=== PATIENT | female | born 1985 | race Hispanic/Latino ===

== ENCOUNTER 2018-08-26 12:16 | Emergency (ER) | payer MEDICAID ==
[2018-08-26 12:24] VITALS: BP 132/80
[2018-08-26] MEDS ORDERED: IMODIUM PO ONE (12:36)
[2018-08-26] MEDS ORDERED: ZOFRAN ODT PO ONE (12:36)
[2018-08-26] MEDS ORDERED: IMODIUM ONE (12:40)
[2018-08-26] MEDS ORDERED: ZOFRAN ODT ONE (12:40)
--- NOTE | 2018-08-26 12:40 | Emergency Department Report ---
ED N/V/D HPI - General Chief complaint: Nausea/Vomiting/Diarrhea Stated complaint: MIGRAIN/STOMACH VIRUS Time Seen by Provider: 08/26/18 12:32 Source: patient Mode of arrival: Ambulatory Limitations: No Limitations - History of Present Illness Initial comments: 32-year-old female presents to ED with nausea, vomiting, diarrhea since yesterday. She reports sick contacts at home. Denies abdominal pain, fevers. Also reports migraine headache 2 weeks. Patient has history of migraines. Has been taking [id number] medications. MD complaint: nausea, vomiting, diarrhea -: days(s) (1) Description of Vomiting: food contents Description of Diarrhea: water Associated Abdominal Pain: No Severity: mild Improves with: none Worsens with: eating Associated Symptoms: headaches. denies: fever/chills - Related Data Previous Rx's Medication Instructions Recorded Last Taken Type Butalb/Acetamin/Caff 50-325-40 1 tab PO Q6HR PRN #10 tab 08/26/18 Unknown Rx [Fioricet] Ondansetron [Zofran Odt] 4 mg PO Q8HR PRN #20 tab.rapdis 08/26/18 Unknown Rx Promethazine [Phenergan TAB] 25 mg PO Q6HR PRN #20 tab 08/26/18 Unknown Rx Allergies Allergy/AdvReac Type Severity Reaction Status Date / Time No Known Allergies Allergy Unverified 08/26/18 12:24 ED Review of Systems ROS: Stated complaint: MIGRAIN/STOMACH VIRUS Other details as noted in HPI Comment: All other systems reviewed and negative Constitutional: denies: chills, fever Gastrointestinal: nausea, vomiting, diarrhea. denies: abdominal pain ED Past Medical Hx - Past Medical History Hx Headaches / Migraines: Yes Additional medical history: elevated cholesterol - Surgical History Additional Surgical History: tubiligation, d/c, partial hysterectomy,right wrist - Social History Smoking Status: Never Smoker Substance Use Type: Alcohol - Medications Home Medications: Home Medications Medication Instructions Recorded Confirmed Last Taken Type Butalb/Acetamin/Caff 50-325-40 1 tab PO Q6HR PRN #10 tab 08/26/18 Unknown Rx [Fioricet] Ondansetron [Zofran Odt] 4 mg PO Q8HR PRN #20 tab.rapdis 08/26/18 Unknown Rx Promethazine [Phenergan TAB] 25 mg PO Q6HR PRN #20 tab 08/26/18 Unknown Rx ED Physical Exam - General Limitations: No Limitations General appearance: alert, in no apparent distress - Head Head exam: Present: atraumatic, normocephalic - Eye Eye exam: Present: normal appearance - ENT ENT exam: Present: mucous membranes moist - Neck Neck exam: Present: normal inspection - Respiratory Respiratory exam: Present: normal lung sounds bilaterally. Absent: respiratory distress - Cardiovascular Cardiovascular Exam: Present: regular rate, normal rhythm - GI/Abdominal GI/Abdominal exam: Present: soft. Absent: distended, tenderness - Extremities Exam Extremities exam: Present: normal inspection - Neurological Exam Neurological exam: Present: alert, oriented X3, CN II-XII intact. Absent: motor sensory deficit - Psychiatric Psychiatric exam: Present: normal affect, normal mood - Skin Skin exam: Present: warm, dry, intact, normal color ED Course Vital Signs 08/26/18 12:19 Temperature 97.7 F Pulse Rate 75 Respiratory 18 Rate Blood Pressure 132/80 O2 Sat by Pulse 100 Oximetry Critical care attestation.: If time is entered above; I have spent that time in minutes in the direct care of this critically ill patient, excluding procedure time. ED Disposition Clinical Impression: Gastroenteritis, Migraine headache Disposition: TO HOME OR SELFCARE Is pt being admited?: No Condition: Stable Instructions: Gastroenteritis (ED) Prescriptions: Butalb/Acetamin/Caff 50-325-40 [Fioricet] 1 tab PO Q6HR PRN #10 tab PRN Reason: Headache Ondansetron [Zofran Odt] 4 mg PO Q8HR PRN #20 tab.rapdis PRN Reason: Vomiting Promethazine [Phenergan TAB] 25 mg PO Q6HR PRN #20 tab PRN Reason: Nausea Referrals: [facility] [Provider Group] - 3-5 Days RADHA ELLIS MD [Referring] - 3-5 Days DANNI VICTORIA MD [Staff Physician] - 3-5 Days Forms: Work/School Release Form(ED) Time of Disposition: 12:40
[2018-08-26 12:51] LABS: Bilirubin,Urine NEG (Negative); Blood,Urine SM (Negative); Color,Urine Yellow (Yellow); Mucus,Urine FEW /HPF; Protein,Urine <15 mg/dL mg/dL (Negative); Urobilinogen,Urine < 2.0 mg/dL (<2.0); WBC,Urine < 1.0 /HPF (0.0-6.0)
== END 2018-08-26 12:53 | disposition home or self-care (01) ==
LOC: ED 12:16
DX: K52.9 Noninfective gastroenteritis and colitis, unspecified (principal); G43.909 Migraine, unspecified, not intractable, without status migrainosus; E78.00 Pure hypercholesterolemia, unspecified; Z98.51 Tubal ligation status; Z90.710 Acquired absence of both cervix and uterus
CPT/HCPCS: 81001; 99283; Q0162

== ENCOUNTER 2019-01-10 14:17 | Emergency (ER) | payer MEDICAID ==
[2019-01-10 14:31] VITALS: BP 133/79
[2019-01-10] MEDS ORDERED: BENADRYL IV ONE (14:51)
[2019-01-10] MEDS ORDERED: TORADOL IV ONE (14:51)
[2019-01-10] MEDS ORDERED: REGLAN IV ONE (14:51)
[2019-01-10] MEDS ORDERED: NACL 0.9% 1000 ML 1,000 ML IV ONE (14:51)
--- NOTE | 2019-01-10 14:54 | Emergency Department Report ---
ED Headache HPI - General Chief Complaint: Headache Stated Complaint: MIGRANE 3WKS/N/V Time Seen by Provider: 01/10/19 14:31 - History of Present Illness Initial Comments: This is a 33-year-old female nontoxic, well nourished in appearance, no acute signs of distress presents to the ED with c/o of acute on chronic headache. Patient stated that she has chronic migraine headaches and currently symptoms of headache today is the same as usual with no changes. Patient describes headache as diffuse with level of 3 out of 10. Patient denies thunderclap headache. Patient denies any radiation of pain. Patient denies any head trauma. Patient denies any visual changes. Patient denies worse headache. Patient stated that darkness makes headache better and bright lights make the headache worse. Patient also agrees to some nausea and vomiting. Patient denies any numbness, tingling, fever, chills, chest pain, shortness of breath, stiff neck. Patient denies facial drooping or one sided weakness. Patient denies any radiation of pain. Patient denies any allergies. Past medical history includes migraine headaches. Timing/Duration: episodic Quality: mild Head Injury Location: other (diffuse) Recent Head Trauma: occasional headaches Associated Symptoms: denies symptoms, nausea/vomiting, other (light sensitivity). denies: confusion, fatigue, facial pain, fever/chills, flushing, loss of consciousness, nasal congestion, nasal drainage, numbness in legs/feet, rash, seizures, sinus infection, stiff neck, vision changes, weakness Allergies/Adverse Reactions: Allergies No Known Allergies Allergy (Verified 01/10/19 14:18) Home Medications: Ambulatory Orders Butalb/Acetamin/Caff 50-325-40 [Fioricet] 1 tab PO Q6HR PRN #10 tab 08/26/18 Ondansetron [Zofran Odt] 4 mg PO Q8HR PRN #20 tab.rapdis 08/26/18 Promethazine [Phenergan TAB] 25 mg PO Q6HR PRN #20 tab 08/26/18 SUMAtriptan SUCCINATE [Imitrex] 25 mg PO QDAY #20 tablet 09/02/18 Butalb/Acetaminophen/Caffeine [Fioricet 50-300-40 mg CAP] 1 cap PO Q8HR PRN #12 cap 01/10/19 ED Review of Systems ROS: Stated complaint: MIGRANE 3WKS/N/V Other details as noted in HPI Constitutional: denies: chills, fever Eyes: denies: eye pain, eye discharge, vision change ENT: denies: ear pain, throat pain Respiratory: denies: cough, shortness of breath, wheezing Cardiovascular: denies: chest pain, palpitations Endocrine: no symptoms reported Gastrointestinal: denies: abdominal pain, nausea, diarrhea Genitourinary: denies: urgency, dysuria, discharge Musculoskeletal: denies: back pain, joint swelling, arthralgia Skin: denies: rash, lesions Neurological: headache. denies: weakness, paresthesias Psychiatric: denies: anxiety, depression Hematological/Lymphatic: denies: easy bleeding, easy bruising ED Past Medical Hx - Past Medical History Hx Headaches / Migraines: Yes Additional medical history: elevated cholesterol - Surgical History Additional Surgical History: tubiligation, d/c, partial hysterectomy,right wrist - Social History Smoking Status: Former Smoker Substance Use Type: Prescribed - Medications Home Medications: Home Medications Medication Instructions Recorded Confirmed Last Taken Type Butalb/Acetamin/Caff 50-325-40 1 tab PO Q6HR PRN #10 tab 08/26/18 Unknown Rx [Fioricet] Ondansetron [Zofran Odt] 4 mg PO Q8HR PRN #20 tab.rapdis 08/26/18 Unknown Rx Promethazine [Phenergan TAB] 25 mg PO Q6HR PRN #20 tab 08/26/18 Unknown Rx SUMAtriptan SUCCINATE [Imitrex] 25 mg PO QDAY #20 tablet 09/02/18 Unknown Rx Butalb/Acetaminophen/Caffeine 1 cap PO Q8HR PRN #12 cap 01/10/19 Unknown Rx [Fioricet 50-300-40 mg CAP] ED Physical Exam - General Limitations: No Limitations General appearance: alert, in no apparent distress - Head Head exam: Present: atraumatic, normocephalic - Eye Eye exam: Present: normal appearance, PERRL, EOMI Pupils: Present: normal accommodation - Neck Neck exam: Present: normal inspection, full ROM. Absent: tenderness, meningismus, lymphadenopathy - Extremities Exam Extremities exam: Present: normal inspection, full ROM - Back Exam Back exam: Present: normal inspection, full ROM. Absent: tenderness, CVA tenderness (R), CVA tenderness (L), muscle spasm, paraspinal tenderness, vertebral tenderness, rash noted - Neurological Exam Neurological exam: Present: alert, oriented X3, normal gait - Expanded Neurological Exam Expanded Patient oriented to: Present: person, place, time Cranial nerves: EOM's Intact: Normal, Facial Sensation: Normal Cerebellar function: Finger to Nose: Normal Upper motor neuron: Pronator Drift: Normal, Sensory Extinction: Normal Sensory exam: Upper Extremity Light Touch: Normal, Upper Extremity Pin Prick: Normal, Upper Extremity Temperature: Normal, Lower Extremity Light Touch: Normal, Lower Extremity Pin Prick: Normal, Lower Extremity Temperature: Normal Motor strength exam: RUE: 5, LUE: 5, RLE: 5, LLE: 5 Best Eye Response ([place]): (4) open spontaneously Best Motor Response ([place]): (6) obeys commands Best Verbal Response ([place]): (5) oriented Mami Total: 15 - Psychiatric Psychiatric exam: Present: normal affect, normal mood - Skin Skin exam: Present: warm, dry, intact, normal color. Absent: rash ED Course Vital Signs 01/10/19 14:29 Temperature 97.9 F Pulse Rate 87 Respiratory 20 Rate Blood Pressure 133/79 O2 Sat by Pulse 95 Oximetry - Reevaluation(s) Reevaluation #1: 01/10/19 14:58 Patient is speaking in full sentences with no signs of distress noted. ED Medical Decision Making - Medical Decision Making This is a 33-year-old female that presents with headache. Patient is stable and was examined by me. Patient is neurologically stable. There is no stiff neck or neck pain. Vital signs are stable. Patient is afebrile. Patient received Benadryl, Reglan, Toradol, and 1 L of normal saline which the patient stated that headache has subsided and resolved. Patient was instructed not to operate any machinery after discharged due to drowsiness of Benadryl. Patient stated t hat a family member will drive patient home. Patient is discharged with Fioricet. Patient was referred to Follow-up with a primary care/neurologist doctor in 3-5 days or if symptoms worsen and continue return to emergency room as soon as possible. At time of discharge, the patient does not seem toxic or ill in appearance. No acute signs of distress noted. Patient agrees to discharge treatment plan of care. No further questions noted by the patient. Critical care attestation.: If time is entered above; I have spent that time in minutes in the direct care of this critically ill patient, excluding procedure time. ED Disposition Clinical Impression: Migraine headache Qualifiers: Migraine type: unspecified Status migrainosus presence: without status migrainosus Intractability: not intractable Qualified Code(s): G43.909 - Migraine, unspecified, not intractable, without status migrainosus Disposition: TO HOME OR SELFCARE Is pt being admited?: No Does the pt Need Aspirin: No Condition: Stable Instructions: Migraine Headache (ED), Butalbital/Aspirin/Caffeine (By mouth) Additional Instructions: Follow-up with a primary care/neurologist doctor in 2-3 days or if symptoms worsen and continue return to emergency room as soon as possible. Prescriptions: Butalb/Acetaminophen/Caffeine [Fioricet 50-300-40 mg CAP] 1 cap PO Q8HR PRN #12 cap PRN Reason: Pain , Severe (7-10) Referrals: PRIMARY CARE, [Primary Care Provider] - 3-5 Days EDIL VACA MD [Staff Physician] - 3-5 Days OTIS SALEEM MD [Staff Physician] - 3-5 Days [facility] [Outside] - 3-5 Days [facility] [Outside] - 3-5 Days Forms: Work/School Release Form(ED), Accompanied Note
--- NOTE | 2019-01-10 15:07 | Emergency Department Report ---
Blank Doc - Documentation Documentation: 33 y o female with hx of migraine recently moved [facility] cc of migraine h eadache states she doesnt have her medication and currently waiting for her insurance approval no trauma [facility] eval
== END 2019-01-10 16:11 | disposition home or self-care (01) ==
LOC: ED 14:17
DX: G43.909 Migraine, unspecified, not intractable, without status migrainosus (principal); Z87.891 Personal history of nicotine dependence; E78.00 Pure hypercholesterolemia, unspecified; Z98.51 Tubal ligation status; Z90.710 Acquired absence of both cervix and uterus
CPT/HCPCS: 96361; 96374; 96375; 99282; J1200; J1885; J2765; J7030

== ENCOUNTER 2019-02-09 20:33 | Emergency (ER) | payer MEDICAID ==
[2019-02-09 20:42] VITALS: BP 124/69
--- NOTE | 2019-02-09 20:42 | Emergency Department Report ---
Blank Doc - Documentation Documentation: This is a 33-year-old female that presents with acute on chronic headaches. S tated is a typical migrane headaches. No head injuries. No worst headache. No other complaints or symptoms. This initial assessment/diagnostic orders/clinical plan/treatment(s) is/are subject to change based on patient's health status, clinical progression and re- assessment by fellow clinical providers in the ED. Further treatment and workup at subsequent clinical providers discretion. Patient/guardians urged not to elope from the ED as their condition may be serious if not clinically assessed and managed. Initial orders include: 1- Patient sent to [facility] for further evaluation and treatment
[2019-02-09] MEDS ORDERED: TORADOL IM ONE (22:38)
[2019-02-09] MEDS ORDERED: FIORICET PO ONE (22:38)
[2019-02-09] MEDS ORDERED: ZOFRAN ODT PO ONE (22:39)
--- NOTE | 2019-02-09 23:28 | Emergency Department Report ---
ED Headache HPI - General Chief Complaint: Headache Stated Complaint: MIGRAINE Time Seen by Provider: 02/09/19 20:41 Source: patient, family Exam Limitations: no limitations - History of Present Illness Initial Comments: Patient is a 33-year-old white female with a history of chronic migraine headaches presents to the ED with complaint of acute exacerbation of her chronic migraine headaches for the last 1 week, worse in the last 3 days despite taking ibuprofen. Patient states that previously ibuprofen has helped her migraine headaches but that in the last 2 days the headache has been persistent despite taking the medication. Patient also complains of nausea, photophobia, and lack of appetite. Patient describes the pain as sharp and persistent and constant. Patient denies change in vision, vomiting, fever, chills, cough, nasal and sinus congestion, sore throat, neck pain, chest pain, shortness of breath or, dizziness, palpitations or abdominal pain. Timing/Duration: 1 week, constant, waxing and waning Quality: severe, constant, sharp Head Injury Location: temporal Recent Head Trauma: no recent headache/trauma, chronic headaches Modifying Factors: improves with: medication Associated Symptoms: nausea/vomiting. denies: confusion, fatigue, facial pain, fever/chills, flushing, loss of consciousness, nasal congestion, nasal drainage, numbness in legs/feet, seizures, sinus infection, stiff neck, vision changes, weakness Allergies/Adverse Reactions: Allergies No Known Allergies Allergy (Verified 01/10/19 14:18) Home Medications: Ambulatory Orders Ondansetron [Zofran Odt] 4 mg PO Q8HR PRN #20 tab.rapdis 08/26/18 SUMAtriptan SUCCINATE [Imitrex] 25 mg PO QDAY #20 tablet 09/02/18 Butalb/Acetaminophen/Caffeine [Fioricet 50-300-40 mg CAP] 1 cap PO Q8HR PRN #12 cap 01/10/19 Butalb/Acetamin/Caff 50-325-40 [Fioricet 50-325-40] 1 tab PO Q6HR PRN #14 tab 02/09/19 Ketorolac [Toradol] 10 mg PO Q8H PRN #20 tablet 02/09/19 Promethazine [Phenergan] 25 mg PO Q6HR PRN #20 tab 02/09/19 ED Review of Systems ROS: Stated complaint: MIGRAINE Other details as noted in HPI Comment: All other systems reviewed and negative Constitutional: denies: chills, fever Eyes: denies: eye pain, eye discharge, vision change ENT: denies: ear pain, throat pain Respiratory: no symptoms reported. denies: cough, orthopnea, shortness of breath, SOB with exertion, SOB at rest, wheezing Cardiovascular: denies: chest pain, palpitations, edema, syncope, paroxysmal nocturnal dyspnea Endocrine: no symptoms reported Gastrointestinal: nausea. denies: abdominal pain, diarrhea Genitourinary: denies: urgency, dysuria, discharge Musculoskeletal: denies: back pain, joint swelling, arthralgia Skin: denies: rash, lesions Neurological: headache. denies: weakness, paresthesias Psychiatric: denies: anxiety, depression Hematological/Lymphatic: denies: easy bleeding, easy bruising ED Past Medical Hx - Past Medical History Previous Medical History?: Yes Hx Headaches / Migraines: Yes Additional medical history: elevated cholesterol, 'back problems' - Surgical History Past Surgical History?: Yes Additional Surgical History: tubiligation, d/c, partial hysterectomy,right wrist - Social History Smoking Status: Never Smoker Substance Use Type: Alcohol - Medications Home Medications: Home Medications Medication Instructions Recorded Confirmed Last Taken Type Ondansetron [Zofran Odt] 4 mg PO Q8HR PRN #20 tab.rapdis 08/26/18 Unknown Rx SUMAtriptan SUCCINATE [Imitrex] 25 mg PO QDAY #20 tablet 09/02/18 Unknown Rx Butalb/Acetaminophen/Caffeine 1 cap PO Q8HR PRN #12 cap 01/10/19 Unknown Rx [Fioricet 50-300-40 mg CAP] Butalb/Acetamin/Caff 50-325-40 1 tab PO Q6HR PRN #14 tab 02/09/19 Unknown Rx [Fioricet 50-325-40] Ketorolac [Toradol] 10 mg PO Q8H PRN #20 tablet 02/09/19 Unknown Rx Promethazine [Phenergan] 25 mg PO Q6HR PRN #20 tab 02/09/19 Unknown Rx ED Physical Exam - General Limitations: No Limitations General appearance: alert, in no apparent distress - Head Head exam: Present: atraumatic, normocephalic, normal inspection - Eye Eye exam: Present: normal appearance, PERRL, EOMI. Absent: scleral icterus, conjunctival injection, nystagmus, periorbital swelling, periorbital tenderness Pupils: Present: normal accommodation - ENT ENT exam: Present: normal exam, normal orophraynx, mucous membranes moist, TM's normal bilaterally, normal external ear exam - Neck Neck exam: Present: normal inspection, full ROM - Respiratory Respiratory exam: Present: normal lung sounds bilaterally. Absent: respiratory distress, wheezes, rales, stridor, chest wall tenderness, accessory muscle use, decreased breath sounds, prolonged expiratory - Cardiovascular Cardiovascular Exam: Present: regular rate, normal rhythm, normal heart sounds. Absent: systolic murmur, diastolic murmur, rubs, gallop - GI/Abdominal GI/Abdominal exam: Present: soft, normal bowel sounds. Absent: tenderness, guarding, rebound, hyperactive bowel sounds, hypoactive bowel sounds, organomegaly - Rectal Rectal exam: Present: deferred - Extremities Exam Extremities exam: Present: normal inspection, full ROM, normal capillary refill - Back Exam Back exam: Present: normal inspection, full ROM. Absent: tenderness, CVA tenderness (R), CVA tenderness (L), muscle spasm, paraspinal tenderness, vertebral tenderness - Neurological Exam Neurological exam: Present: alert, oriented X3, CN II-XII intact, normal gait, reflexes normal - Psychiatric Psychiatric exam: Present: normal affect, normal mood - Skin Skin exam: Present: warm, dry, intact, normal color. Absent: rash ED Course Vital Signs 02/09/19 20:40 Temperature 98.1 F Pulse Rate 81 Respiratory 18 Rate Blood Pressure 124/69 O2 Sat by Pulse 96 Oximetry - Reevaluation(s) Reevaluation #1: 02/09/19 23:33 Patient is alert and oriented 3 and is not in any distress with normal vital signs. Patient was treated for migraine headaches and ED, and on reevaluation, patient's headache has resolved with medications and patient was discharged home on medications and advised to follow-up with her primary care physician in 3-5 days for reevaluation. Patient was advised to return to the ED immediately if symptoms get worse. ED Medical Decision Making - Medical Decision Making Patient is alert and oriented 3 and is not in any distress with normal vital signs. Patient was treated for migraine headaches and ED, and on reevaluation, patient's headache has resolved with medications and patient was discharged home on medications and advised to follow-up with her primary care physician in 3-5 days for reevaluation. Patient was advised to return to the ED immediately if symptoms get worse. - Differential Diagnosis Migraine headaches; sinus headache, nausea and vomiting Critical care attestation.: If time is entered above; I have spent that time in minutes in the direct care o f this critically ill patient, excluding procedure time. ED Disposition Clinical Impression: Migraine headache without aura Qualifiers: Status migrainosus presence: with status migrainosus Intractability: not intractable Qualified Code(s): G43.001 - Migraine without aura, not intractable, with status migrainosus Disposition: TO HOME OR SELFCARE Is pt being admited?: No Does the pt Need Aspirin: No Condition: Stable Instructions: Migraine Headache (ED) Additional Instructions: Take medications with food, drink plenty of fluids and follow-up with your primary care physician in 3-5 days for reevaluation. Return to the ED immediately if symptoms get worse. Prescriptions: Butalb/Acetamin/Caff 50-325-40 [Fioricet 50-325-40] 1 tab PO Q6HR PRN #14 tab PRN Reason: Headache Promethazine [Phenergan] 25 mg PO Q6HR PRN #20 tab PRN Reason: Nausea Ketorolac [Toradol] 10 mg PO Q8H PRN #20 tablet PRN Reason: Pain Referrals: [facility] [Outside] - 3-5 Days Time of Disposition: 23:24 Print Language: THAI
== END 2019-02-09 23:55 | disposition home or self-care (01) ==
LOC: ED 20:33
DX: G43.909 Migraine, unspecified, not intractable, without status migrainosus (principal); E78.00 Pure hypercholesterolemia, unspecified; Z90.710 Acquired absence of both cervix and uterus; Z79.899 Other long term (current) drug therapy
CPT/HCPCS: 96372; 99282; J1885; Q0162